=== PATIENT | male | born 1990 | race African-American/Black ===

== ENCOUNTER 2020-09-19 20:19 | Emergency (ER) | payer OTHER ==
[~2020-09-19 20:19] MED LIST: BENTYL10 MG PO; IBUPROFEN800 MG PO; NIZORAL 2% TOP; ONDANSETRON ODT4 MG PO; PRILOSEC20 MG PO; ZOFRAN4 MG PO
[2020-09-19 22:44] LABS: BASOPHIL 0.5 % (0-2); EOSINOPHIL 0.7 % (0-5); HCT 47.2 % (42.0-52.0); HGB 16.8 g/dl (13.2-18.0); LYMPHOCYTE 45.6 % (15-48); MCH 29.2 pg (25.0-31.0); MCHC 35.6 g/dL (32.0-36.0); MCV 81.9 fL (78.0-100.0); MONOCYTE 7.1 % (0-12); MPV 10.8 fL (6.0-9.5); NEUTROPHIL 45.9 % (41-80); NRBC 0; PLT 244 K/uL (150-400); RBC 5.76 M/uL (4.70-6.00); WBC 8.1 K/uL (4.0-10.5)
[2020-09-19 23:00] LABS: ALBUMIN 3.6 g/dL (3.4-5.0); BILIRUBIN - TOTAL 0.9 mg/dL (0.2-1.0); BUN/CREAT RATIO (CALC) 12.7 RATIO; CREATININE 1.02 mg/dL (0.67-1.17); GLOBULIN (CALCULATION) 3.5 g/dL; POTASSIUM 4.3 mmol/L (3.5-5.1); TOTAL PROTEIN 7.1 g/dL (6.4-8.2)
[2020-09-20] MEDS ORDERED: IBUPROFEN800 MG PO (00:48)
[2020-09-20] MEDS ORDERED: MEDROL 4MG DOSEP4 MG PO (00:48)
[2020-09-20] MEDS ORDERED: PERCOCET 5-3251 EACH PO (00:48)
== END 2020-09-20 01:01 | disposition home or self-care (01) ==
LOC: FER 20:19
PROVIDERS: Emergency Medicine Emergency Medical Services
DX: M94.0 Chondrocostal junction syndrome [Tietze] (principal); R05 Cough; J45.909 Unspecified asthma, uncomplicated; F17.210 Nicotine dependence, cigarettes, uncomplicated; Z87.19 Personal history of other diseases of the digestive system
CPT/HCPCS: 36415; 71045; 71275; 80053; 84484; 85025; 85379; J1100; J1170; J1885; J2405; Q9967

== ENCOUNTER 2020-12-07 12:47 | Emergency (ER) | payer OTHER ==
[~2020-12-07 12:47] MED LIST changes: +MEDROL 4MG DOSEP4 MG PO; +PERCOCET 5-3251 EACH PO
[2020-12-07 14:52] LABS: BASOPHIL 0.7 % (0-2); EOSINOPHIL 1.9 % (0-5); HCT 51.6 % (42.0-52.0); HGB 17.6 g/dl (13.2-18.0); LYMPHOCYTE 39.2 % (15-48); MCH 27.9 pg (25.0-31.0); MCHC 34.1 g/dL (32.0-36.0); MCV 81.9 fL (78.0-100.0); MONOCYTE 16.2 % (0-12); MPV 10.7 fL (6.0-9.5); NEUTROPHIL 41.8 % (41-80); NRBC 0; PLT 212 K/uL (150-400); RDW 13.2 % (11.5-14.0); WBC 5.9 K/uL (4.0-10.5)
[2020-12-07 15:02] LABS: BUN/CREAT RATIO (CALC) 7.4 RATIO; CREATININE 1.08 mg/dL (0.67-1.17); POTASSIUM 3.9 mmol/L (3.5-5.1)
== END 2020-12-07 16:25 | disposition home or self-care (01) ==
LOC: FER 12:47
PROVIDERS: Emergency Medicine
DX: U07.1 COVID-19 (principal); F17.210 Nicotine dependence, cigarettes, uncomplicated; Z20.822 Contact with and (suspected) exposure to COVID-19
CPT/HCPCS: 36415; 80048; 85025; J2405; J7030; U0002

== ENCOUNTER 2021-05-10 11:25 | Emergency (ER) | payer OTHER ==
[2021-05-10 13:33] LABS: CORONAVIRUS 2019 SARS-COV-2 NEGATIVE (NEGATIVE); INFLUENZA A NAA NEGATIVE (NEGATIVE)
== END 2021-05-10 14:54 | disposition left against medical advice (07) ==
LOC: FER 11:25
PROVIDERS: Emergency Medicine
DX: R11.2 Nausea with vomiting, unspecified (principal); Z53.21 Procedure and treatment not carried out due to patient leaving prior to being seen by health care provider; Z20.822 Contact with and (suspected) exposure to COVID-19
CPT/HCPCS: 99281; U0002

== ENCOUNTER 2021-08-03 15:22 | Emergency (ER) | payer OTHER ==
[2021-08-03 16:09] LABS: BASOPHIL 0.3 % (0-2); EOSINOPHIL 0.3 % (0-5); HCT 47.8 % (42.0-52.0); LYMPHOCYTE 14.5 % (15-48); MCH 28.4 pg (25.0-31.0); MCHC 35.6 g/dL (32.0-36.0); MCV 79.8 fL (78.0-100.0); MONOCYTE 11.2 % (0-12); MPV 10.1 fL (6.0-9.5); NEUTROPHIL 73.4 % (41-80); NRBC 0; PLT 229 K/uL (150-400); RBC 5.99 M/uL (4.70-6.00); RDW 12.8 % (11.5-14.0); WBC 11.9 K/uL (4.0-10.5)
[2021-08-03 16:26] LABS: BUN/CREAT RATIO (CALC) 9.2 RATIO; CREATININE 1.2 mg/dL (0.67-1.17); POTASSIUM 4.1 mmol/L (3.5-5.1)
[2021-08-03 16:46] LABS: CORONAVIRUS 2019 SARS-COV-2 NEGATIVE (NEGATIVE); INFLUENZA A NAA NEGATIVE (NEGATIVE)
[2021-08-03] MEDS ORDERED: AZITHROMYCIN250 MG PO (18:50)
[2021-08-03] MEDS ORDERED: PREDNISONE 20MG20 MG PO (18:50)
[2021-08-03] MEDS ORDERED: ONDANSETRON ODT4 MG PO (18:50)
[2021-08-03] MEDS ORDERED: AMOX TR-K CLV1 EAC4 PO (18:50)
== END 2021-08-03 19:10 | disposition home or self-care (01) ==
LOC: FER 15:22
PROVIDERS: Internal Medicine
DX: J18.9 Pneumonia, unspecified organism (principal); N17.9 Acute kidney failure, unspecified; R19.7 Diarrhea, unspecified; J45.909 Unspecified asthma, uncomplicated; Z20.822 Contact with and (suspected) exposure to COVID-19
CPT/HCPCS: 36415; 71045; 71250; 80048; 85025; 93005; J0696; J1100; J2405; J7120; U0002